=== PATIENT | male | born 1955 | race African-American/Black ===

== ENCOUNTER → 2016-09-20 | Outpatient (CLI) | payer BC ==
[2016-06-03 16:38] VITALS: BP 117/78
[~2016-09-20] MED LIST: ACET325T9 PO; AMLO1TAB76 PO; AMLO1TAB95 PO; CARI350T PO; HYDR-2672 PO; MELO-150 PO; NAPR220C4 PO; OXYC-244 PO; TRAM50TA PO; WARF5TAB7 PO
[2016-09-20 14:26] LABS: BASO # 0.1 x10^3/uL (0.0-0.2); BASO % 1 % (0-3); EOS % 3 % (0-3); HEMATOCRIT 48.8 % (39.0-53.0); HEMOGLOBIN 16.5 g/dL (13.0-17.5); LYMPH # 1.8 x10^3/uL (1.0-4.8); LYMPH % 25 % (24-48); MEAN CORPUSCULAR HEMOGLOBIN 30 pg (25-35); MEAN CORPUSCULAR HGB CONC 34 g/dL (31-37); MEAN CORPUSCULAR VOLUME 89 fL (79-100); MONO % 9 % (0-9); NEUT % 62 % (31-73); PLATELET COUNT 289 x10^3/uL (140-400); RED CELL DISTRIBUTION WIDTH 14.3 % (11.5-14.5)
[2016-09-20 14:35] LABS: INR 1.1 (0.8-1.1); PROTHROMBIN TIME PATIENT 13.2 SEC (11.7-14.0)
[2016-09-20 14:47] LABS: ALBUMIN 3.7 g/dL (3.4-5.0); CALCIUM 9.3 mg/dL (8.5-10.1); CREATININE 0.8 mg/dL (0.7-1.3); GFR 119.3; POTASSIUM 3.8 mmol/L (3.5-5.1)
[2016-09-20 15:07] LABS: BILIRUBIN,URINE NEGATIVE (NEG); GLUCOSE,URINE NEGATIVE (NEG); NITRITE,URINE NEGATIVE (NEG); PROTEIN,URINE NEGATIVE (NEG-TRACE); UROBILINOGEN,URINE 0.2 mg/dL (0.2 mg/dL)
[2016-09-20 15:18] LABS: BACTERIA,URINE FEW /HPF (0-FEW); RBC,URINE 0 /HPF (0-2); SQUAMOUS EPITHELIAL CELL,UR MANY /LPF; WBC,URINE OCC /HPF (0-4)
== END | disposition home or self-care (01) ==
LOC: SURGPAT 13:23
PROVIDERS: ATTEND Orthopaedic Surgery
DX: M17.0 Bilateral primary osteoarthritis of knee (principal)
CPT/HCPCS: 36415; 80048; 81001; 82040; 85027; 85610; 85651; 85730; 87641

== ENCOUNTER 2016-09-27 05:45 | Inpatient (IN) | payer BC ==
[~2016-09-27] VITALS: Ht 172.7 cm; Wt 127.9 kg
[2016-09-27] VITALS (9 sets, daily range): BP systolic 103–129; BP diastolic 61–88
[2016-09-27] MEDS ORDERED: TRANEXAMIC ACID 1,000 MG in IV NORMAL SALINE 50ML 50 ML INJ ONE ×2 (06:00→08:00)
[2016-09-27] MEDS ORDERED: CEFAZOLIN 2GM PREMIX 50 ML IV PRN (06:00)
[2016-09-27] MEDS ORDERED: ONDANSETRON PF 4 MG/2 ML VIAL. ONE (06:55)
[2016-09-27] MEDS ORDERED: DEXAMETHASONE SOD PHOS 20 MG/5 ML VIAL. ONE (06:55)
[2016-09-27] MEDS ORDERED: PROPOFOL 20 ML IV ONE (06:55)
[2016-09-27] MEDS ORDERED: FENTANYL PF 250 MCG/5 ML VIAL. ONE ×2 (06:55→08:26)
[2016-09-27] MEDS ORDERED: MIDAZOLAM HCL 2 MG/2 ML VIAL. ONE (06:55)
[2016-09-27] MEDS ORDERED: LIDOCAINE 2% 100 MG/5 ML DISP.SYRIN. ONE (06:55)
[2016-09-27] MEDS ORDERED: ONDANSETRON PF 4 MG/2 ML VIAL. IV PRN (07:00)
[2016-09-27] MEDS ORDERED: PROCHLORPERAZINE 10 MG/2 ML VIAL. IV PRN ×2 (07:00→08:00)
[2016-09-27] MEDS ORDERED: FENTANYL PF 100 MCG/2 ML VIAL. IV PRN ×2 (07:00→08:00)
[2016-09-27] MEDS ORDERED: IV RINGERS,LACTATED 1000ML 1,000 ML IV SCH (07:00)
[2016-09-27] MEDS ORDERED: LIDOCAINE 1% 1 ML SYRINGE. ID PRN (07:00)
[2016-09-27] MEDS ORDERED: HYDROMORPHONE 2 MG/ML VIAL. IV PRN (07:00)
[2016-09-27] MEDS ORDERED: HYDROCODONE/APAP 7.5/325MG TABLET. ONE (07:10)
[2016-09-27] MEDS ORDERED: MELOXICAM 7.5 MG TABLET PO ONE (07:10)
[2016-09-27] MEDS ORDERED: HYDROCODONE/APAP 7.5/325MG TABLET. PO ONE (07:30)
[2016-09-27] MEDS: MELOXICAM 7.5 MG TABLET PO SCH (07:30)
[2016-09-27 07:39] LABS: INR 1.1 (0.8-1.1); PROTHROMBIN TIME PATIENT 13.1 SEC (11.7-14.0)
[2016-09-27] MEDS ORDERED: ACETAMINOPHEN INTRAVENOUS 100 ML IV ONE (07:56)
[2016-09-27] MEDS ORDERED: DEXTROSE 50% 25 GM / 50ML DISP.SYRIN. IV PRN (08:00)
[2016-09-27] MEDS ORDERED: OXYCODONE/APAP 7.5/325 TABLET. PO PRN (08:00)
[2016-09-27] MEDS ORDERED: 0.9 % SODIUM CHLORIDE 10 ML DISP.SYRIN. IV PRN (08:00)
[2016-09-27] MEDS ORDERED: TRAMADOL 50 MG TABLET. PO PRN ×2 (08:00)
[2016-09-27] MEDS ORDERED: OXYCODONE/APAP 5/325 TABLET. PO PRN (08:00)
[2016-09-27] MEDS ORDERED: MORPHINE SULFATE 4 MG/ML DISP.SYRIN. IV PRN ×2 (08:00)
[2016-09-27] MEDS ORDERED: MORPHINE SULFATE 5 MG, KETOROLAC TROMETHAMINE 30 MG, ROPIVacaine 0.5% PF 60 ML, EPINEPH... INT ART ONE ×5 (08:00)
[2016-09-27] MEDS ORDERED: MORPHINE SULFATE 10 MG/ML VIAL. IV PRN (08:00)
[2016-09-27] MEDS ORDERED: HYDROCODONE/APAP 7.5/325MG TABLET. PO PRN (08:00)
[2016-09-27] MEDS ORDERED: DIPHENHYDRAMINE 50 MG/ML VIAL IV PRN (08:00)
[2016-09-27] MEDS ORDERED: CALCIUM CARBONATE 500 MG TAB.CHEW PO PRN (08:00)
[2016-09-27] MEDS ORDERED: MORPHINE SULFATE 2 MG/ML DISP.SYRIN. IV PRN (08:00)
[2016-09-27] MEDS ORDERED: ACETAMINOPHEN 325 MG TABLET. PO PRN (08:00)
[2016-09-27] MEDS: FENTANYL PF 100 MCG/2 ML VIAL. IV PRN ×4 (10:23→15:25)
--- NOTE | 2016-09-27 10:48 | RAD ---
Portable right knee, 2 views, 09/27/2016: History: Postop evaluation A total knee prosthesis has been placed in satisfactory position. Surgical skin clips and a drain overlie the operative site anteriorly. There is no evidence of a retained surgical instrument, needle or radiopaque sponge on these 2 views. IMPRESSION: No significant postoperative abnormality is detected.
[2016-09-27] MEDS: MORPHINE SULFATE 2 MG/ML DISP.SYRIN. IV PRN ×2 (11:01→11:13)
[2016-09-27] MEDS: IV DEXTROSE 5 %-0.45 % NACL 1,000 ML IV SCH ×2 (11:55→16:45)
[2016-09-27] MEDS: AMLODIPINE BESYLATE 5 MG TABLET PO SCH (12:00)
[2016-09-27] MEDS: LOSARTAN POTASSIUM 50 MG TABLET. PO SCH (12:00)
--- NOTE | 2016-09-27 12:02 | PDOC ---
BRIEF OPERATIVE NOTE Date: Sep 27, 2016 Pre-Op Diagnosis djd right knee Post-Op Diagnosis same Procedure Performed right total knee arthroplasty Surgeon Caitlyn Anesthesia Type: General Blood Loss 75cc Specimens Obtained cartilage surfaces to pathology Findings above Complications none MATEO WHEAT MD Sep 27, 2016 12:01
[2016-09-27] MEDS: SENNOSIDES/DOCUSATE 8.6/50MG TABLET. PO SCH (13:27)
[2016-09-27] MEDS: MULTIVITAMIN with MINERAL TABLET. PO SCH (13:27)
[2016-09-27] MEDS: CEFAZOLIN SODIUM 3 GM in IV NORMAL SALINE 100ML 100 ML IV SCH ×2 (13:28→19:39)
[2016-09-27] MEDS ORDERED: WARFARIN 7.5 MG TABLET. PO ONE (16:00)
[2016-09-27] MEDS: KETOROLAC TROMETHAMINE 30 MG, BUPIVACAINE MPF 0.25% 20 ML, EPINEPHRINE 0.5 MG in TOTAL ... INT ART SCH (16:44)
[2016-09-27] MEDS: HYDROCODONE/APAP 10/325 TABLET. PO PRN ×3 (16:44→22:55)
[2016-09-27] MEDS: FERROUS SULFATE 325 MG TABLET PO SCH (16:44)
[2016-09-27] MEDS ORDERED: CELECOXIB 200 MG CAPSULE PO SCH (21:00)
[2016-09-28] MEDS: IV DEXTROSE 5 %-0.45 % NACL 1,000 ML IV SCH ×2 (00:20→13:56)
[2016-09-28 02:42] VITALS: BP 103/67
[2016-09-28] MEDS: CEFAZOLIN SODIUM 3 GM in IV NORMAL SALINE 100ML 100 ML IV SCH (02:42)
[2016-09-28 05:04] LABS: HEMATOCRIT 42.1 % (39.0-53.0); HEMOGLOBIN 13.6 g/dL (13.0-17.5)
[2016-09-28 05:29] LABS: INR 1.3 (0.8-1.1); PROTHROMBIN TIME PATIENT 15.4 SEC (11.7-14.0)
[2016-09-28] MEDS: KETOROLAC TROMETHAMINE 30 MG, BUPIVACAINE MPF 0.25% 20 ML, EPINEPHRINE 0.5 MG in TOTAL ... INT ART SCH (05:41)
[2016-09-28] MEDS: HYDROCODONE/APAP 10/325 TABLET. PO PRN ×4 (05:51→23:11)
[2016-09-28] MEDS ORDERED: MAGNESIUM HYDROXIDE 2,400 MG/30 ML ORAL.SUSP. PO PRN (06:00)
[2016-09-28 06:04] VITALS: BP 104/70
[2016-09-28] MEDS: MULTIVITAMIN with MINERAL TABLET. PO SCH (08:45)
[2016-09-28] MEDS: FERROUS SULFATE 325 MG TABLET PO SCH ×2 (08:45→17:35)
[2016-09-28] MEDS: MELOXICAM 7.5 MG TABLET PO SCH (08:45)
[2016-09-28] MEDS: SENNOSIDES/DOCUSATE 8.6/50MG TABLET. PO SCH (08:46)
--- NOTE | 2016-09-28 08:52 | OP ---
DATE OF SURGERY: 09/27/2016 PREOPERATIVE DIAGNOSIS: Degenerative joint disease, right knee. POSTOPERATIVE DIAGNOSIS: Degenerative joint disease, right knee. PROCEDURE: Right total knee arthroplasty. SURGEON: Suman Brady MD. ANESTHESIA: General endotracheal. ESTIMATED BLOOD LOSS: 75 mL. COMPLICATIONS: None. OPERATIVE INDICATIONS: The patient is a 61-year-old male with severe right knee pain and degenerative changes, unresponsive to nonoperative treatment with severe erosion and tricompartmental degenerative findings on x-ray. I had gone over with him the risks, benefits, postoperative course of total knee arthroplasty as he has exhausted nonoperative treatment measures including injection, activity modification, anti-inflammatories, etc., and we had gone over the possible risks of infection, premature wear of loosening, continued pain, medical or other anesthetic complications including blood clots among others. All his questions were answered. Consent was obtained and he agrees to proceed with operative evaluation and treatment. DESCRIPTION OF PROCEDURE: The patient was identified, procedure verified, patient placed in the supine position on the operating table. After adequate amounts of general endotracheal anesthesia were administered, the right lower extremity was prepped and draped in standard sterile fashion and after timeout was performed, the patient and procedure identified and verified. The right lower extremity was exsanguinated by elevation, tourniquet inflated to 350 mmHg. A midline incision was made with a medial parapatellar approach. Fat pad was excised. Patella was everted. He was indeed noted to have very severe tricompartmental degenerative changes with marked erosion in the medial compartment. The femoral canal was drilled and located with the intramedullary guide used to establish a 5 degree cut with standard distal cut as he had very mild flexion contracture. Distal femur was then sized at a size 9 and cutting block was pinned in 3 degrees of external rotation after appropriate drill holes were placed and posterior referencing noted as there was minimal femoral deformity. Anterior, posterior chamfer cuts were then made. Posterior cruciate ligament was preserved. Menisci were excised and the external tibial guide was placed. I made a tibial cut designed to be just to the extent of the medial erosion and tibial component was sized at a size F. Trial components of a size F tibia were aligned to size 9 femur. Ligament balancing had previously been carried out in flexion, extension. A size 14 mm medial congruent spacer was placed as the 12 mm resulted in slight recurvatum. Patella was prepared. Lateral bone was removed to avoid any impingement and a 35 mm patellar trial then noted to have excellent alignment and tracking. The femoral lug holes were drilled. Tibia was drilled and broached and trial components were removed. Thorough irrigation carried out with normal saline solution and bleeding points in the capsule were controlled by electrocautery. Bone surfaces were thoroughly dried and [employer] components were cemented in with polymethyl methacralate cement consisting of a size F tibia, a size 9 standard femur and a size 14 medial congruent spacer was again placed with the knee held in extension. Excess cement was removed, 35 mm vitamin E patellar button was cemented in place. When cement was verified to be dry, any excess was removed. The trial spacer was removed. Thorough irrigation carried out with normal saline solution and a vitamin E medial congruent posterior cruciate retaining spacer was locked into place. Hemovac drain and catheter were placed. Catheter mixture was infused into the tissues. Closure was accomplished with #2 Ethibond suture in an interrupted fashion and reinforced by a running #1 Vicryl suture. Subcutaneous closure accomplished with a buried Vicryl suture, skin closure with calin. Sterile dressings were applied. Toes were noted to be warm and pink following deflation of the tourniquet, which was actually immediately after cementing. After about an hour and 10 minutes, the patient was extubated and transferred to postop holding in stable condition having tolerated the procedure well. SUMAN BRADY MD DR: MIRZA/madhavi JOB#: [id number] / [id number]
[2016-09-28] MEDS: AMLODIPINE BESYLATE 5 MG TABLET PO SCH (09:00)
[2016-09-28] MEDS: LOSARTAN POTASSIUM 50 MG TABLET. PO SCH (09:00)
--- NOTE | 2016-09-28 09:40 | PDOC ---
PROGRESS NOTES Subjective Subjective Problems overnight: Pain well controlled getting up and around reasonably well Objective Vital Signs Vital Signs Date Time Temp Pulse Resp B/P Pulse Ox O2 Delivery O2 Flow Rate FiO2 09/28/16 08:45 Room Air 09/28/16 07:39 2.0 09/28/16 06:52 20 09/28/16 06:04 98.5 82 104/70 91 98.5 Physical Exam Knee dressing clean dry and intact distal neurovascular status intact good early range of motion and excellent stability Labs Laboratory Tests Test 09/27/16 06:35 09/28/16 04:35 09/28/16 04:40 Prothrombin Time 13.1SEC (11.7-14.0) 15.4SEC (11.7-14.0) Prothromb Time International Ratio 1.1 (0.8-1.1) 1.3 (0.8-1.1) Activated Partial Thromboplast Time 24SEC (24-38) Hemoglobin 13.6g/dL (13.0-17.5) Hematocrit 42.1% (39.0-53.0) Mean Corpuscular Hemoglobin Concent 32g/dL (31-37) Laboratory Tests Test 09/28/16 04:35 09/28/16 04:40 Hemoglobin 13.6g/dL (13.0-17.5) Hematocrit 42.1% (39.0-53.0) Mean Corpuscular Hemoglobin Concent 32g/dL (31-37) Prothrombin Time 15.4SEC (11.7-14.0) Prothromb Time International Ratio 1.3 (0.8-1.1) Imaging Postop AP lateral x-rays right knee show excellent placement total knee arthroplasty Assessment Assessment POD# [1], S/P [right total knee arthroplasty] Problems: Plan Plan of Care Mobilize with physical therapy weightbearing as tolerated standard total knee protocol Coumadin anticoagulation MATEO WHEAT MD Sep 28, 2016 09:40
[2016-09-28 11:18] VITALS: BP 111/74
[2016-09-28] MEDS ORDERED: WARFARIN 5 MG TABLET. PO ONE (16:00)
[2016-09-28] MEDS ORDERED: BISACODYL 10 MG SUPP.RECT PR PRN (16:00)
[2016-09-28 17:25] VITALS: BP 100/59
[2016-09-28] MEDS: ZOLPIDEM 5 MG TABLET. PO PRN (23:11)
[2016-09-29] MEDS: HYDROCODONE/APAP 10/325 TABLET. PO PRN ×5 (05:21→21:04)
[2016-09-29 05:56] VITALS: BP 108/76
[2016-09-29 06:53] LABS: INR 1.5 (0.8-1.1); PROTHROMBIN TIME PATIENT 16.9 SEC (11.7-14.0)
[2016-09-29] MEDS: MULTIVITAMIN with MINERAL TABLET. PO SCH (08:15)
[2016-09-29] MEDS: SENNOSIDES/DOCUSATE 8.6/50MG TABLET. PO SCH (08:16)
[2016-09-29] MEDS: FERROUS SULFATE 325 MG TABLET PO SCH ×2 (08:16→17:16)
[2016-09-29] MEDS: MELOXICAM 7.5 MG TABLET PO SCH (08:16)
[2016-09-29] MEDS: AMLODIPINE BESYLATE 5 MG TABLET PO SCH (09:00)
[2016-09-29] MEDS: LOSARTAN POTASSIUM 50 MG TABLET. PO SCH (09:00)
[2016-09-29 09:46] LABS: HEMATOCRIT 41.3 % (39.0-53.0); HEMOGLOBIN 13.6 g/dL (13.0-17.5)
[2016-09-29 11:00] VITALS: BP 102/67
[2016-09-29] MEDS ORDERED: WARFARIN 4 MG TABLET. PO ONE (16:00)
--- NOTE | 2016-09-29 16:07 | PDOC ---
ORTHO PROGRESS NOTES Subjective Patient is doing well. Pain is controlled. No chest pain or shortness of breath. Advancing with therapy. Anticipates discharge to rehabilitation tomorrow Post-op Day: 2 (Right total knee arthroplasty) Vitals Vital Signs Date Time Temp Pulse Resp B/P Pulse Ox O2 Delivery O2 Flow Rate FiO2 09/29/16 12:52 Room Air 09/29/16 11:00 98.5 93 16 102/67 95 98.5 09/29/16 07:44 2.0 Labs Laboratory Tests Test 09/28/16 04:35 09/28/16 04:40 09/29/16 05:45 Hemoglobin 13.6g/dL (13.0-17.5) 13.6g/dL (13.0-17.5) Hematocrit 42.1% (39.0-53.0) 41.3% (39.0-53.0) Mean Corpuscular Hemoglobin Concent 32g/dL (31-37) 33g/dL (31-37) Prothrombin Time 15.4SEC (11.7-14.0) 16.9SEC (11.7-14.0) Prothromb Time International Ratio 1.3 (0.8-1.1) 1.5 (0.8-1.1) Laboratory Tests Test 09/29/16 05:45 Hemoglobin 13.6g/dL (13.0-17.5) Hematocrit 41.3% (39.0-53.0) Mean Corpuscular Hemoglobin Concent 33g/dL (31-37) Prothrombin Time 16.9SEC (11.7-14.0) Prothromb Time International Ratio 1.5 (0.8-1.1) Notes Patient is awake and alert sitting up in chair. Breathing unlabored, no acute distress. Range of motion 5-80 actively. Incision covered with dressing, intact. Neurovascular intact right lower extremity Problems: (1) Degenerative joint disease of right knee Assessment and Plan Continue PT OT, weightbearing as tolerated Pain controlled Anticoagulation per pharmacy Anticipate discharge to rehabilitation tomorrow Problem Qualifiers (1) Degenerative joint disease of right knee: Osteoarthritis type: primary Qualified Code: M17.11 - Unilateral primary osteoarthritis, right knee HESHAM POSADA APRN Sep 29, 2016 16:07
[2016-09-29 17:21] VITALS: BP 124/79
[2016-09-29] MEDS: ZOLPIDEM 5 MG TABLET. PO PRN (21:04)
[2016-09-30] MEDS: HYDROCODONE/APAP 10/325 TABLET. PO PRN ×3 (04:09→13:12)
[2016-09-30 06:02] VITALS: BP 133/82
[2016-09-30 07:11] LABS: HEMATOCRIT 41.3 % (39.0-53.0); HEMOGLOBIN 13.7 g/dL (13.0-17.5)
[2016-09-30 07:21] LABS: INR 1.4 (0.8-1.1); PROTHROMBIN TIME PATIENT 16.5 SEC (11.7-14.0)
--- NOTE | 2016-09-30 08:36 | PATHOLOGY ---
PATHOLOGY REPORT * * * * * * * * FINAL DIAGNOSIS: Segments of bone and soft tissue, right total knee arthroplasty: - Advanced degenerative arthritis. (JPM:; d/t: 09/29/16) REPORT ELECTRONICALLY SIGNED BY: Carlos Marshall M.D. DATE/TIME: 09/30/2016 08:36 * * * * * * * * GROSS PATHOLOGY: Received in formalin labeled "Demarco Roque III, right knee bone and tissue," are multiple segments of bone, including tibial plateau, measuring 11.2 x 8.6 x 2.9 cm in aggregate dimensions admixed with soft tissue; meniscus is not present. The specimen shows focal eburnation of the articular surfaces. Community Affairs Manager sections of bone and soft tissue are submitted in cassette A1, following decalcification. (CAA; 09/28/2016) INITIAL CPT CODE(S): A; 60528, 58607 Professional services performed [place] [facility] [place] [address] Technical services performed by [facility] at [address] [place] [address]. SPECIMEN(S) RECEIVED: A.Right knee bone and tissue CLINICAL HISTORY: Right knee osteoarthritis PATIENT: DEMARCO ROQUE III /AGE: 803/29/1955 (Age: 61) PATIENT #: [id number] ALT CASE #: SPECIMEN COLLECTION DATE: 09/27/2016 SPECIMEN RECEIVED DATE: 09/27/2016 [facility] - [address] [place] [address] - PHONE: [phone] * * * END OF REPORT * * *
[2016-09-30] MEDS: FERROUS SULFATE 325 MG TABLET PO SCH (09:13)
[2016-09-30] MEDS: MULTIVITAMIN with MINERAL TABLET. PO SCH (09:13)
[2016-09-30] MEDS: SENNOSIDES/DOCUSATE 8.6/50MG TABLET. PO SCH (09:13)
[2016-09-30] MEDS: MELOXICAM 7.5 MG TABLET PO SCH (09:14)
[2016-09-30] MEDS: LOSARTAN POTASSIUM 50 MG TABLET. PO SCH (09:15)
[2016-09-30] MEDS: AMLODIPINE BESYLATE 5 MG TABLET PO SCH (09:15)
--- NOTE | 2016-09-30 13:45 | DISCH ---
DISCHARGE INSTRUCTIONS Condition on Discharge Condition on Discharge: Stable Activity After Discharge Activity Instructions for Disc: Other, see below Other activity instructions: weight bearing as tolerated, walker for support Bathing Instructions: Shower-keep dressing dry Diet after Discharge Diet after Discharge: Regular Wound Incision Care Wound/Incision Care: Ice to area for comfort, Keep wound elevated, Do not change dressing Community/Resources/Services Services at Discharge: Home Health Care Services, PT EVALUATE & TREAT Contacting the DR. after DC Call your doctor for: Concerns you may have Follow-Up Follow up with: Caitlyn 2 weeks postop Treatment/Equipment after DC Adaptive Equipment Issued: Front wheeled walker MATEO WHEAT MD Sep 30, 2016 13:45
[2016-09-30] MEDS ORDERED: WARFARIN 6 MG TABLET. PO ONE (14:00)
[2016-09-30] MEDS ORDERED: WARF1TAB PO (15:20)
[2016-09-30] MEDS ORDERED: HYDR-963 PO (15:21)
[2016-09-30 16:45] VITALS: BP 124/86
--- NOTE | 2016-09-30 23:51 | DS ---
DATE OF DISCHARGE: 09/30/2016 PRINCIPAL DIAGNOSIS: Degenerative joint disease of right knee. PROCEDURE: Right total knee arthroplasty. ADDITIONAL DIAGNOSES: BMI related. DISCHARGE MEDICATIONS: Include Montgomery 10/325 one p.o. q. 3h. p.r.n. pain, Coumadin as directed by anticoagulation clinic, resume preoperative medications. ACTIVITIES: Weightbearing as tolerated, standard total knee precautions, may shower with dressing intact. Keep incision dry. DISCHARGE INSTRUCTIONS: Report any redness, drainage, fever, chills, uncontrolled pain or other problems. Follow up with Dr. Brady in 2 weeks. BRIEF DESCRIPTION OF HOSPITAL COURSE: The patient underwent an uncomplicated right total knee arthroplasty, postoperative day #1, did well with physical therapy. His hemoglobin, hematocrit and vital signs were stable throughout. Pain was well controlled on pain medication. He is doing well in terms of his activities of daily living and was discharged from the hospital in stable condition with home health care. Follow up. MATEO BRADY MD DR: MIRZA/madhavi JOB#: [id number] / [id number] SHAHRIAR oJhnston MD
== END 2016-09-30 17:15 | disposition home health service (06) | DRG 470 ==
LOC: OPSVCIP 05:45 → 4 SOUTHEST 11:35
PROVIDERS: ADMIT Orthopaedic Surgery; ATTEND Orthopaedic Surgery
PROC: 0SRC0J9 Replacement of Right Knee Joint with Synthetic Substitute, Cemented, Open Approach (ICD-10-PCS; principal; 2016-09-27 07:30)
DX: M17.11 Unilateral primary osteoarthritis, right knee (principal)
CPT/HCPCS: 36415; 73560; 85014; 85018; 85610; 85730; 86850; 86900; 86901; 88305; 88311; J0131; J0171; J0690; J1100; J1885; J2250; J2270; J2405; J2704; J2795; J3010; J3490; J7030; J7120; 97116; 97150; 97530; C1769

== ENCOUNTER 2016-10-31 12:00 | Inpatient (IN) | payer BC ==
[2016-10-31] VITALS (7 sets, daily range): BP systolic 109–146; BP diastolic 62–97
[~2016-10-31] VITALS: Ht 172.7 cm; Wt 127.0 kg
[~2016-10-31 12:00] MED LIST changes: +HYDR-963 PO; +WARF1TAB PO
[2016-10-31] MEDS ORDERED: MORPHINE SULFATE 4 MG/ML DISP.SYRIN. IV/SQ PRN (12:15)
--- NOTE | 2016-10-31 12:31 | PHYS DOC ---
Past Medical History Past Medical History: Hypertension Additional Past Medical Histor: bulging disks, spinal stenosis, chronic back pain Past Surgical History: Knee Replacement Additional Past Surgical Histo: back surgery Alcohol Use: None Drug Use: None Adult General Chief Complaint Chief Complaint: TRAUMA ALERT HPI HPI Patient is a 61 year old male who presents with right knee pain and bleeding since fall from standing height. He was doing a forward lunge in PT and fell to his right side. Does not recall direct knee trauma, but had pain and bleeding with noted large incision opening. He denies numbness, tingling, weakness, other injury. No loss of consciousness. Review of Systems Review of Systems Constitutional: Denies fever or chills [] Eyes: Denies change in visual acuity, redness, or eye pain [] HENT: Denies nasal congestion or sore throat [] Respiratory: Denies cough or shortness of breath [] Cardiovascular: No additional information not addressed in HPI [] GI: Denies abdominal pain, nausea, vomiting, bloody stools or diarrhea [] : Denies dysuria or hematuria [] Musculoskeletal: Denies back pain [] Integument: Denies rash or skin lesions [] Neurologic: Denies headache, focal weakness or sensory changes [] Endocrine: Denies polyuria or polydipsia [] Current Medications Current Medications Current Medications Medications (Trade) Dose Ordered Sig/Kvng Start Time Stop Time Status Last Admin Dose Admin Cefazolin Sodium/ Sodium Chloride (Ancef/Iv Sodium Chloride 0.9% 50ml) 50 ml @ 100 mls/hr Q8HRS 10/31/16 14:00 UNV Morphine Sulfate 4 mg 4 mg PRN Q15MIN PRN 10/31/16 12:15 11/01/16 12:14 Allergies Allergies Allergies Coded Allergies Type Severity Reaction Last Updated Verified JF Inhibitors Allergy Intermediate 09/27/16 Yes Physical Exam Physical Exam Constitutional: Well developed, well nourished, no acute distress, non-toxic appearance. [] HENT: Normocephalic, atraumatic, bilateral external ears normal, oropharynx moist, nose normal. [] Eyes: PERRLA, EOMI. [] Neck: Normal range of motion, supple. [] Cardiovascular:Heart rate regular rhythm [] Lungs & Thorax: Bilateral breath sounds clear to auscultation [] Abdomen: Bowel sounds normal, soft, no tenderness. [] Skin: Warm, dry, no erythema, no rash. [] Back: Normal ROM. [] Extremities: RLE with incision wide open with some blood pooling in the wound, no active bleeding, able to see arthosis; hip/knee ROM not tested, intact ROM of ankle and toes; sensation intact to light touch; good dp pulse. Neurologic: Alert and oriented X 3, normal motor function, normal sensory function, no focal deficits noted. [] Psychologic: Affect normal, judgement normal, mood normal. [] Course & Med Decision Making Course & Med Decision Making Pertinent Labs and Imaging studies reviewed. (See chart for details) Assessed wound at bedside with Dr. Brady, orthopedics, who agrees with imaging and Ancef and treatment in the operating room. Discussed case with Dr. Fink, trauma surgery, for trauma alert; who agrees with plan. Dragon Disclaimer Dragon Disclaimer This electronic medical record was generated, in whole or in part, using a voice recognition dictation system. Departure Departure Impression: Primary Impression: Wound dehiscence Disposition: ADMITTED INPATIENT Condition: STABLE Referrals: SHAHRIAR BECKMAN MD (PCP) Grayson HARVEY MD Oct 31, 2016 12:31
[2016-10-31 12:34] LABS: BASO # 0.1 x10^3/uL (0.0-0.2); BASO % 1 % (0-3); EOS % 2 % (0-3); HEMATOCRIT 45.9 % (39.0-53.0); HEMOGLOBIN 15.5 g/dL (13.0-17.5); LYMPH # 2.6 x10^3/uL (1.0-4.8); LYMPH % 35 % (24-48); MEAN CORPUSCULAR HEMOGLOBIN 30 pg (25-35); MEAN CORPUSCULAR HGB CONC 34 g/dL (31-37); MEAN CORPUSCULAR VOLUME 88 fL (79-100); MONO % 10 % (0-9); NEUT % 52 % (31-73); PLATELET COUNT 293 x10^3/uL (140-400); RED BLOOD COUNT 5.23 x10^6/uL (4.30-5.70); RED CELL DISTRIBUTION WIDTH 14.8 % (11.5-14.5); WHITE BLOOD COUNT 7.6 x10^3/uL (4.0-11.0)
[2016-10-31 12:38] LABS: PROTHROMBIN TIME PATIENT 12.5 SEC (11.7-14.0)
[2016-10-31 12:39] LABS: CALCIUM 9.4 mg/dL (8.5-10.1); GFR 92.2; POTASSIUM 3.9 mmol/L (3.5-5.1)
[2016-10-31] MEDS ORDERED: IV RINGERS,LACTATED 1000ML 1,000 ML IV SCH (12:40)
[2016-10-31] MEDS ORDERED: PROCHLORPERAZINE 10 MG/2 ML VIAL. IV PRN ×2 (12:45→16:30)
[2016-10-31] MEDS ORDERED: LIDOCAINE 1% 1 ML SYRINGE. ID PRN (12:45)
[2016-10-31] MEDS ORDERED: MORPHINE SULFATE 2 MG/ML DISP.SYRIN. IV PRN ×2 (12:45→16:30)
[2016-10-31] MEDS ORDERED: ONDANSETRON PF 4 MG/2 ML VIAL. IV PRN (12:45)
[2016-10-31] MEDS ORDERED: FENTANYL PF 100 MCG/2 ML VIAL. IV PRN ×3 (12:45→16:30)
[2016-10-31] MEDS ORDERED: CEFAZOLIN 1GM IVPB FOR OMNI 50 ML IV ONE (12:45)
--- NOTE | 2016-10-31 12:55 | RAD ---
Right knee, 3 views, 10/31/2016: History: Fall, knee pain, wound to his since Comparison is made to a study from 09/27/2016. The femoral and tibial components of the knee prosthesis appear to be in satisfactory position. The patella is now displaced laterally. No fracture is identified. There is extensive soft tissue deformity anteriorly with gas collections projected over the soft tissues. There is diffuse subcutaneous edema about the knee. IMPRESSION: Lateral patellar dislocation
[2016-10-31] MEDS ORDERED: PROPOFOL 20 ML IV ONE ×2 (12:58→13:44)
[2016-10-31] MEDS ORDERED: DEXAMETHASONE SOD PHOS 20 MG/5 ML VIAL. ONE (12:58)
[2016-10-31] MEDS ORDERED: LIDOCAINE 2% 100 MG/5 ML DISP.SYRIN. ONE (12:58)
[2016-10-31] MEDS ORDERED: ONDANSETRON PF 4 MG/2 ML VIAL. ONE (12:58)
[2016-10-31] MEDS ORDERED: FENTANYL PF 100 MCG/2 ML VIAL. ONE ×2 (12:59→13:56)
[2016-10-31] MEDS: IV RINGERS,LACTATED 1000ML 1,000 ML IV SCH ×2 (13:20→21:35)
[2016-10-31] MEDS ORDERED: SUCCINYLCHOLINE 200 MG/10 ML VIAL. ONE (13:21)
[2016-10-31] MEDS ORDERED: PHENYLEPHRINE in 0.9% NACL PF 1 MG/10 ML DISP.SYRIN. IV ONE (13:47)
[2016-10-31] MEDS ORDERED: ROCURONIUM 50 MG/5 ML VIAL. ONE (13:55)
[2016-10-31] MEDS ORDERED: CEFAZOLIN SODIUM 1 GM in IV NORMAL SALINE 50ML 50 ML IV SCH (14:00)
[2016-10-31] MEDS ORDERED: EPHEDRINE PF IN SALINE 50 MG/5 ML DISP.SYRIN. IV ONE (14:03)
[2016-10-31] MEDS ORDERED: CEFAZOLIN 2GM PREMIX 50 ML IV ONE (14:05)
[2016-10-31] MEDS ORDERED: GLYCOPYRROLATE 1 MG/5 ML VIAL. ONE (14:36)
[2016-10-31] MEDS ORDERED: NEOSTIGMINE METHYLSULFATE 5 MG/5 ML SYRINGE. ONE (14:36)
[2016-10-31] MEDS ORDERED: MORPHINE SULFATE 10 MG/ML VIAL. ONE (15:11)
[2016-10-31] MEDS ORDERED: DESFLURANE 61 TO 120 MINUTES IH ONE (15:20)
[2016-10-31] MEDS: FENTANYL PF 100 MCG/2 ML VIAL. IV PRN ×4 (15:44→16:12)
[2016-10-31] MEDS ORDERED: IV DEXTROSE 5 %-0.45 % NACL 1,000 ML IV SCH (16:21)
[2016-10-31] MEDS ORDERED: 0.9 % SODIUM CHLORIDE 10 ML DISP.SYRIN. IV PRN (16:30)
[2016-10-31] MEDS ORDERED: MORPHINE SULFATE 10 MG/ML VIAL. IV PRN (16:30)
[2016-10-31] MEDS ORDERED: DIPHENHYDRAMINE 50 MG/ML VIAL IV PRN (16:30)
[2016-10-31] MEDS ORDERED: TRAMADOL 50 MG TABLET. PO PRN ×3 (16:30)
[2016-10-31] MEDS ORDERED: HYDROCODONE/APAP 10/325 TABLET. PO PRN (16:30)
[2016-10-31] MEDS ORDERED: DEXTROSE 50% 25 GM / 50ML DISP.SYRIN. IV PRN (16:30)
[2016-10-31] MEDS ORDERED: MORPHINE SULFATE 4 MG/ML DISP.SYRIN. IV PRN (16:30)
[2016-10-31] MEDS ORDERED: OXYCODONE/APAP 5/325 TABLET. PO PRN (16:30)
[2016-10-31] MEDS ORDERED: CALCIUM CARBONATE 500 MG TAB.CHEW PO PRN (16:30)
[2016-10-31] MEDS ORDERED: ACETAMINOPHEN 325 MG TABLET. PO PRN (16:30)
[2016-10-31] MEDS: HYDROMORPHONE 2 MG/ML VIAL. IV PRN ×2 (16:31→16:43)
--- NOTE | 2016-10-31 16:40 | PDOC ---
BRIEF OPERATIVE NOTE Date: Oct 31, 2016 Pre-Op Diagnosis traumatic dehiscence right knee wound Post-Op Diagnosis same Procedure Performed I/D repair and closure right knee Surgeon Caitlyn Anesthesia Type: General Blood Loss 100cc Findings above Complications none MATEO WHEAT MD Oct 31, 2016 16:40
--- NOTE | 2016-10-31 17:57 | ACF ---
Admission Forms Criteria WOUND COMPLICATIONS Clinical Indications for Inpatient Care (Place 'X' for any and all applicable criteria): Ongoing inpatient care may be indicated for wound complications with ANY ONE of the following (1) (15): [ ]I. Infection with ANY ONE of the following(32)(33): [ ]a) Temperature greater than 38.5 C (101.3 F) [ ]b) Evidence of tissue necrosis [ ]c) Erythema diameter expanding around wound despite treatment [ ]d) Mental status changes [ ]e) Dehydration [ ]f) Bacteremia [ ]g) Hemodynamic instability [ ]h) Suspected necrotizing fasciitis [ ]i) Rapidly spreading lesions [ ]j) High-risk location (eg, perineum, sternum, orbit) [ ]k) High-risk coexisting clinical condition as indicated by ANY ONE of the following: [ ]i) Poorly controlled diabetes [ ]ii) Cirrhosis [ ]iii) Renal failure [ ]iv) Neutropenia [ ] v) Asplenia [ ]vi) Immunosuppression (eg, AIDS, chronic corticosteroid use) [ ]viii) Other high-risk medical comorbidities [X] II. Dehiscence requiring frequent monitoring or immediate treatment [ ] III. Hematoma with ANY ONE of the following: [ ]a) Hemodynamic instability or acute anemia due to rapid development of hematoma [ ]b) Neck hematoma causing airway compression [ ]c) Retroperitoneal hematoma [ ]d) Uncontrolled coagulopathy [ ]IV. Seroma with evidence of secondary infection and requirement for IV antibiotics [D](31) [ ]V. Pain that cannot be managed at lower level of care Extended stay beyond goal length of stay for primary condition may be needed until ALL of the following are present(1)(33)(34): [ ]a) Afebrile or fever resolving [ ]b) Hemodynamic stability [ ]c) Pain resolving [ ]d) Wound closed, continuity adequately restored, or wound manageable at lower level of care [ ]e) No drain needed or drain care manageable at lower level of care [ ]f) Wound hematoma or seroma resolving [ ]g) Antibiotics not needed or regimen manageable at lower level of care(38) [ ]h) Dressing care manageable at lower level of care [ ]i) Coagulopathy absent, resolved, or treatable at lower level of care [ ]j) Medical comorbidities resolved or treatable at lower level of care The original [facility] content created by [employer] has been revised. The portions of the content which have been revised are identified through the use of italic text or in bold, and [facility] has neither reviewed nor approved the modified material. All other unmodified content is copyright [facility]. Please see references footnoted in the original [facility] edition 2016 Admission Criteria Met?: Yes ALANA GOLDBERG Oct 31, 2016 17:57
[2016-10-31] MEDS ORDERED: WARFARIN 7.5 MG TABLET. PO ONE (18:00)
[2016-10-31] MEDS: FERROUS SULFATE 325 MG TABLET PO SCH (18:03)
[2016-10-31] MEDS: CEFAZOLIN SODIUM 3 GM in IV NORMAL SALINE 100ML 100 ML IV SCH (18:44)
--- NOTE | 2016-10-31 18:56 | HP ---
ADMIT DATE: 10/31/2016 CHIEF COMPLAINT: Right knee wound. HISTORY OF PRESENT ILLNESS: The patient is about a month out from total knee arthroplasty, doing very well when I last saw him about 2 weeks ago, said his knee was coming along great. He was actually performing a lot more activities than preoperatively and doing well with physical therapy. Apparently he was at outpatient physical therapy today doing the three forward lunges and fell to his right side his knee and gave out on him and had an incision open up. Denies any head injury or loss of consciousness. PAST MEDICAL HISTORY: Significant for hypertension, chronic back pain, spinal stenosis. PAST SURGICAL HISTORY: Significant for a knee arthroplasty as noted above and previous back surgery. ALLERGIES: INCLUDE JF INHIBITORS. MEDICATIONS: List is reviewed including Coumadin. REVIEW OF SYSTEMS: Denies any chest pain, shortness of breath, fever, chills, radiating pain, numbness, tingling, really just significant for the knee pain currently. Denies any headaches, visual changes, dizziness, change in bowel or bladder habits and again was doing well with the knee prior to this incident. FAMILY HISTORY: Noncontributory. SOCIAL HISTORY: He was back at home again doing outpatient therapy. Denies any alcohol, smoking or drug use. PHYSICAL EXAMINATION: VITAL SIGNS: Temperature 97.9, pulse 95, respirations 18, blood pressure 134/75, 93% saturation on room air, which was later 100% on room air. HEENT: Atraumatic, normocephalic. HEART: Regular rate and rhythm. LUNGS: Clear to auscultation bilaterally. ABDOMEN: Benign, obese. EXTREMITIES: Examination of the right knee reveals obvious opening of the central portion of his incision as well as his retinaculum. The implant is actually visible. No gross contamination is noted. X-rays show intact femoral and tibial components with the patella displaced laterally as expected. IMPRESSION: 1. Traumatic wound dehiscence, right knee. 2. Status post total knee arthroplasty. TREATMENT PLAN: I actually met him down in the Emergency Department after hearing about this incident and physical therapy. I emphasized to him that the major risk of this issue is really with infection and we want to get him into surgery really as soon as possible, which actually is consistent with his n.p.o. status, which was last consumption of food about 6 hours ago. I told him that otherwise the knee components seem to be in good position and we would take him in and thoroughly wash out and repair the wound get him back into physical therapy as soon as possible based on the condition of tissues, etc. All his questions were answered. Consent was obtained and we planned procedures only to the Emergency Department today. MATEO WHEAT MD DR: MIRZA/madhavi JOB#: [id number] / [id number]
[2016-10-31] MEDS: CELECOXIB 200 MG CAPSULE PO SCH (20:36)
[2016-10-31] MEDS: HYDROCODONE/APAP 7.5/325MG TABLET. PO PRN (20:37)
[2016-10-31] MEDS: CEFAZOLIN SODIUM 1 GM in IV NORMAL SALINE 50ML 50 ML IV SCH (22:00)
--- NOTE | 2016-10-31 22:54 | OP ---
DATE OF SURGERY: 10/31/2016 PREOPERATIVE DIAGNOSIS: Traumatic right wound dehiscence status post right total knee arthroplasty. PROCEDURE: Irrigation and debridement with repair of the retinaculum and closure. SURGEON: Suman Brady M.D. ANESTHESIA: General. ESTIMATED BLOOD LOSS: 100 mL COMPLICATIONS: None. OPERATIVE INDICATIONS: The patient is a 61-year-old male who underwent total knee arthroplasty about a month ago. He was doing extremely well when I saw him 2 weeks ago, said his function was excellent, really had very little knee pain and actually said it felt much better than the other knee did in fact with his increased activities, his opposite knee was hurting somewhat more as a result. He was apparently on outpatient physical therapy today, doing lunge type exercise for strength and states that he was on his third one and just could not hold up any more, went off to the side, landed on his right side, twisted his knee and apparently his knee incision popped open. He is not sure exactly how it happened, did not lose any consciousness, but presented to the Emergency Department and was immediately evaluated. I told him my biggest concern was really for infection and we would want to get him in urgently to explore his knee and medicate any of those risks. All his questions were answered. Consent was obtained and he agrees to proceed with operative evaluation and treatment. OPERATIVE TECHNIQUE: The patient was identified, procedure verified, patient placed in the supine position on the operating table. After adequate amounts of general endotracheal anesthesia were administered, the right lower extremity was prepped and draped in standard sterile fashion with a thigh tourniquet applied, but not inflated. After timeout was performed, the patient and procedure identified and verified. The area was first debrided of any loose suture. His Vicryl suture in the subcutaneous area and Vicryl and Ethibond in the retinaculum had completely broken lose with the trauma. The tibial and femoral components were in excellent position and when I brought the patella over from its originally laterally subluxed position, was found to track well in the groove. The debridement was carried out of any hematoma present. There was no devitalized tissue or evidence of infection whatsoever. Once debridement of the tendon edges and subcutaneous tissue was carried out, thorough irrigation carried out with pulse lavage. No debridement of bone was necessary. A total of 4 liters of normal saline solution and pulse lavage were used ____ the wound. After the thorough irrigation carried out and bleeding points controlled by electrocautery, the retinaculum was repaired with #2 Ethibond suture, first in an interrupted fashion and then oversewn twice in a running fashion for reinforcement. Additional thorough irrigation carried out with normal saline solution and bleeding points were controlled. Subcutaneous closure was accomplished with a running quill suture and skin closure with nylon suture in a mattress tension relieving and simple fashion all used. Excellent reapproximation was noted. Patellofemoral tracking and stability of the remainder of the knee joint was verified under all degrees of flexion and movement. Sterile dressings were applied followed by an Wail wrap. The patient was extubated and transferred to postop holding in stable condition having tolerated the procedure well. SUMAN BRADY MD DR: MIRZA/madhavi JOB#: [id number] / [id number]
[2016-11-01] VITALS (7 sets, daily range): BP systolic 88–124; BP diastolic 61–78
[2016-11-01] MEDS: CEFAZOLIN SODIUM 3 GM in IV NORMAL SALINE 100ML 100 ML IV SCH ×2 (01:59→06:40)
[2016-11-01] MEDS: CEFAZOLIN SODIUM 1 GM in IV NORMAL SALINE 50ML 50 ML IV SCH ×3 (02:04→22:00)
[2016-11-01 05:05] LABS: INR 1.1 (0.8-1.1); PROTHROMBIN TIME PATIENT 13.4 SEC (11.7-14.0)
[2016-11-01] MEDS ORDERED: MAGNESIUM HYDROXIDE 2,400 MG/30 ML ORAL.SUSP. PO PRN (06:00)
--- NOTE | 2016-11-01 09:23 | PDOC2 ---
CONSULT Date of Consult Date of Consult DATE: 11/01/16 TIME: 09:16 Reason for Consult Reason for Consult: Fall History of Present Illness Reason for Visit: The patient is a 61 year old male who was brought to the ER after a fall. He had right knee surgery by Dr Brady on Sep 27 and was in physical therapy. He states his knee gave out and he fell from standing height on his left side. He denies loss of consciousness or subsequent neck or back pain. The first thing he noticed was disruption of his R leg incision with a significant amount of blood. He denied noticing any pain or other complaints at any other region of the body. Past Medical History Past Medical History morbid obesity, hypertension, spinal stenosis Past Surgical History Past Surgical History back surgery, R knee, surgery, hip surgery Social History No ALCOHOL: rare Lives: with Family Current Problem List Problem List Problems Medical Problems: (1) BMI 40.0-44.9, adult Status: Acute (2) Wound dehiscence Status: Acute Current Medications Current Medications Current Medications Morphine Sulfate 4 mg 4 mg PRN Q15MIN PRN IV/SQ PAIN GREATER THAN 3/10 Last administered on 10/31/16 12:49; Start 10/31/16 at 12:15; Stop 11/01/16 at 12:14 Cefazolin Sodium 1 gm/Sodium Chloride 50 ml @ 100 mls/hr Q8HRS IV ; Start 10/31 at 14:00; Stop 10/31/16 at 14:00; Status DC Cefazolin Sodium (Ancef 1gm Ivpb For Omni) 50 ml @ 100 mls/hr 1X ONCE IV Last administered on 10/31/16 12:50; Start 10/31/16 at 12:45; Stop 10/31/16 at 13:48; Status DC Ondansetron HCl (Zofran) 4 mg PRN Q6HRS PRN IV Nausea Last administered on 10/31 12:48; Start 10/31/16 at 12:45; Stop 11/01/16 at 12:44 Fentanyl Citrate (Fentanyl 2ml Vial) 25 mcg PRN Q5MIN PRN IV MILD PAIN; Start 10/31/16 at 12:45; Stop 11/01/16 at 12:44 Fentanyl Citrate (Fentanyl 2ml Vial) 50 mcg PRN Q5MIN PRN IV MODERATE PAIN Last administered on 10/31/16 16:12; Start 10/31/16 at 12:45; Stop 11/01/16 at 12:44 Morphine Sulfate 1 mg 1 mg PRN Q10MIN PRN IV SEVERE PAIN; Start 10/31/16 at 12: 45; Stop 11/01/16 at 12:44 Lactated Ringer's (Iv Lactated Ringers) 1,000 ml @ 0 mls/hr Q0M IV ; Start at 12:40; Stop 11/01/16 at 00:39; Status DC Lidocaine HCl 2 ml 1X PRN PRN ID IV START; Start 10/31/16 at 12:45; Stop at 12:44 Hydromorphone HCl (Dilaudid) 0.5 mg PRN Q10MIN PRN IV SEV PAIN,Second choice Last administered on 10/31/16 16:43; Start 10/31/16 at 12:45; Stop 11/01/16 at 12:44 Prochlorperazine Edisylate (Compazine) 5 mg PACU PRN PRN IV NAUSEA; Start 10/31 at 12:45; Stop 11/01/16 at 12:44 Dexamethasone Sodium Phosphate (Decadron) 20 mg STK-MED ONCE .ROUTE ; Start at 12:58; Stop 10/31/16 at 12:59; Status DC Ondansetron HCl 4 mg 4 mg STK-MED ONCE .ROUTE ; Start 10/31/16 at 12:58; Stop at 12:59; Status DC Propofol (Diprivan) 20 ml @ As Directed STK-MED ONCE IV ; Start 10/31/16 at 12: 58; Stop 10/31/16 at 12:59; Status DC Lidocaine HCl 100 mg STK-MED ONCE .ROUTE ; Start 10/31/16 at 12:58; Stop at 12:59; Status DC Fentanyl Citrate (Fentanyl 2ml Vial) 100 mcg STK-MED ONCE .ROUTE ; Start at 12:59; Stop 10/31/16 at 13:00; Status DC Succinylcholine Chloride 200 mg 200 mg STK-MED ONCE .ROUTE ; Start 10/31/16 at 13:21; Stop 10/31/16 at 13:22; Status DC Lactated Ringer's 1,000 ml @ 125 mls/hr Q8H IV Last administered on 10/31/16t 13:20; Start 10/31/16 at 13:35; Stop 11/01/16 at 01:34; Status DC Propofol (Diprivan) 20 ml @ As Directed STK-MED ONCE IV ; Start 10/31/16 at 13: 44; Stop 10/31/16 at 13:45; Status DC Phenylephrine HCl 1 mg 1 mg STK-MED ONCE IV ; Start 10/31/16 at 13:47; Stop at 13:48; Status DC Cefazolin Sodium/ Sodium Chloride (Ancef/Iv Sodium Chloride 0.9% 50ml) 50 ml @ 100 mls/hr Q8HRS IV ; Start 10/31/16 at 22:00 Rocuronium Cohocton (Zemuron) 50 mg STK-MED ONCE .ROUTE ; Start 10/31/16 at 13:55 ; Stop 10/31/16 at 13:56; Status DC Fentanyl Citrate (Fentanyl 2ml Vial) 100 mcg STK-MED ONCE .ROUTE ; Start at 13:56; Stop 10/31/16 at 13:57; Status DC Ephedrine Sulfate 50 mg 50 mg STK-MED ONCE IV ; Start 10/31/16 at 14:03; Stop at 14:04; Status DC Cefazolin Sodium/ Dextrose (Ancef 2gm Premix) 50 ml @ As Directed STK-MED ONCE IV ; Start 10/31/16 at 14:05; Stop 10/31/16 at 14:06; Status DC Glycopyrrolate (Robinul) 1 mg STK-MED ONCE .ROUTE ; Start 10/31/16 at 14:36; Stop 10/31/16 at 14:37; Status DC Neostigmine Methylsulfate 5 mg STK-MED ONCE .ROUTE ; Start 10/31/16 at 14:36; Stop 10/31/16 at 14:37; Status DC Morphine Sulfate 10 mg STK-MED ONCE .ROUTE ; Start 10/31/16 at 15:11; Stop 10/31 at 15:12; Status DC Desflurane (Suprane) 60 ml STK-MED ONCE IH ; Start 10/31/16 at 15:20; Stop 10/31 at 15:21; Status DC Acetaminophen/ Hydrocodone Bitart (Lortab 7.5/325) 1 tab PRN Q3HRS PRN PO PAIN Last administered on 10/31/16 20:37; Start 10/31/16 at 16:30 Acetaminophen/ Hydrocodone Bitart (Lortab 10/325) 1 tab PRN Q3HRS PRN PO PAIN; Start 10/31/16 at 16:30 Tramadol HCl (Ultram) 50 mg PRN QID PRN PO PAIN; Start 10/31/16 at 16:30 Oxycodone/ Acetaminophen (Percocet 5/325) 1 tab PRN Q3HRS PRN PO PAIN; Start at 16:30 Oxycodone/ Acetaminophen (Percocet 7.5/ 325) 1 tab PRN Q3HRS PRN PO PAIN; Start 10/31/16 at 16:30 Tramadol HCl (Ultram) 100 mg PRN Q3HRS PRN PO PAIN; Start 10/31/16 at 16:30 Morphine Sulfate 2 mg PRN Q1HR PRN IV PAIN; Start 10/31/16 at 16:30 Fentanyl Citrate (Fentanyl 2ml Vial) 25 mcg PRN Q1HR PRN IV PAIN; Start at 16:30 Diphenhydramine HCl (Benadryl) 25 mg PRN Q6HRS PRN IV ITCHING; Start 10/31/16 at 16:30 Warfarin Sodium (Coumadin Per Pharmacy) 1 each PRN DAILY PRN MC SEE COMMENTS Last administered on 10/31/16 17:23; Start 10/31/16 at 16:30 Multivitamins (Thera M Plus) 1 tab DAILY PO ; Start 11/01/16 at 09:00 Senna/Docusate Sodium (Senna Plus) 1 tab DAILY PO ; Start 11/01/16 at 09:00 Ferrous Sulfate (Feosol) 325 mg BIDWMEALS PO Last administered on 10/31/16 18: 03; Start 10/31/16 at 17:00 Celecoxib 200 mg 200 mg BID PO Last administered on 10/31/16 20:36; Start at 21:00 Dextrose/Sodium Chloride (Iv D5% - 1/2 NS) 1,000 ml @ 100 mls/hr Q10H IV ; Start 10/31/16 at 16:21; Stop 10/31/16 at 18:20; Status DC Magnesium Hydroxide (Milk Of Magnesia) 2,400 mg 1X PRN PRN PO CONSTIPATION; Start 11/01/16 at 06:00; Stop 11/02/16 at 05:59 Bisacodyl (Dulcolax Supp) 10 mg 1X PRN PRN [place] CONSTIPATION; Start 11/01/16 at 16:00; Stop 11/02/16 at 15:59 Acetaminophen (Tylenol) 650 mg PRN Q4HRS PRN PO MILD PAIN / TEMP; Start at 16:30 Zolpidem Tartrate (Ambien) 5 mg PRN QHS PRN PO INSOMNIA, MAY REPEAT IN 1HR; Start 10/31/16 at 16:30 Calcium Carbonate/ Glycine (Tums) 500 mg PRN QID PRN PO INDIGESTION; Start at 16:30 Morphine Sulfate 4 mg PRN Q1HR PRN IV PAIN; Start 10/31/16 at 16:30 Morphine Sulfate 6 mg PRN Q1HR PRN IV PAIN; Start 10/31/16 at 16:30 Morphine Sulfate 8 mg PRN Q1HR PRN IV PAIN; Start 10/31/16 at 16:30 Sodium Chloride (Normal Saline Flush) 10 ml QSHIFT PRN IV AFTER MEDS AND BLOOD DRAWS; Start 10/31/16 at 16:30 Fentanyl Citrate (Fentanyl 2ml Vial) 50 mcg PRN Q1HR PRN IV PAIN; Start at 16:30 Prochlorperazine Edisylate (Compazine) 10 mg PRN Q4HRS PRN IV NAUSEA/VOMITING; Start 10/31/16 at 16:30 Dextrose 12.5 gm 12.5 gm PRN Q15MIN PRN IV SEE COMMENTS; Start 10/31/16 at 16: 30 Cefazolin Sodium/ Sodium Chloride (Ancef/Iv Sodium Chloride 0.9% 100ml) 100 ml @ 200 mls/hr Q6H IV Last administered on 11/01/16t 06:40; Start 10/31/16 at 19 :00; Stop 11/01/16 at 07:29; Status DC Acetaminophen/ Hydrocodone Bitart (Lortab 10/325) 1 tab PRN Q3HRS PRN PO PAIN; Start 10/31/16 at 16:30 Tramadol HCl (Ultram) 100 mg PRN Q6HRS PRN PO PAIN; Start 10/31/16 at 16:30 Amlodipine Besylate (Norvasc) 5 mg DAILY PO ; Start 11/01/16 at 09:00 Losartan Potassium (Cozaar) 100 mg DAILY PO ; Start 11/01/16 at 09:00 Warfarin Sodium (Coumadin) 7.5 mg 1X WARF ONCE PO Last administered on t 18:03; Start 10/31/16 at 18:00; Stop 10/31/16 at 18:01; Status DC Active Scripts Active Reported Tracy 10-325 Tablet (Acetaminophen/Hydrocodone Bitart) 1 Each Tablet 1 Tab PO PRN Q3HRS PRN LAST DOSE GIVEN: DATE:09-30-16 TIME:12:30 p.m. NEXT DOSE DUE: DATE:09-30-16 TIME:4:30 p.m. if needed for pain Coumadin (Warfarin Sodium) 1 Mg Tablet 1 Tab PO DAILY LAST DOSE GIVEN: DATE:09-30-16 TIME: NEXT DOSE DUE: DATE:09-21-16 TIME:5:00 p.m. Theresa 5-40 Mg Tablet (Amlodipine Bes/Olmesartan Med) 1 Each Tablet 1 Each PO DAILY Not given while in hosp. resume at home as directed Meloxicam 15 Mg Tablet 1 Tab PO DAILY LAST DOSE GIVEN: DATE:06/03/16 TIME:0900 NEXT DOSE DUE: DATE:06/04/16 TIME:0900 Tramadol Hcl 50 Mg Tablet 100 Mg PO Q6H PRN Not given in hosp. may resume at home do not take with lortab Allergies Allergies: Coded Allergies: JF Inhibitors (Verified Allergy, Intermediate, 10/31/16) ROS General: No: Appetite, Chills, Fatigue, Malaise, Night Sweats, Other PSYCHOLOGICAL ROS: No: Anxiety, Behavioral Disorder, Concentration difficultie , Decreased libido, Depression, Disorientation, Hallucinations, Hostility, Irritablity, Memory difficulties, Mood Swings, Obsessive thoughts, Other, Physical abuse, Sexual abuse, Sleep disturbances, Suicidal ideation Eyes: No Blurry vision, No Decreased vision, No Double vision, No Dry eyes, No Excessive tearing, No Eye Pain, No Itchy Eyes, No Loss of vision, No Other, No Photophobia, No Scotomata, No Uses contacts, No Uses glasses HEENT: No: Epistaxis, Heacaches, Hearing change, Nasal congestion, Nasal discharge, Oral lesions, Other, Sinus pain, Sneezing, Snoring, Sore Throat, Tinnitus, Vertigo, Visual Changes, Vocal changes ALLERGY AND IMMUNOLOGY: No: Hives, Insect Bite Sensitivity, Itchy/Watery Eyes, Nasal Congestion, Other, Post Nasal Drip, Seasonal Allergies Hematological and Lymphatic: No: Bleeding Problems, Blood Clots, Blood Transfusions, Brusing, Night Sweats, Other, Pallor, Swollen Lymph Nodes ENDOCRINE: No: Breast Changes, Galactorrhea, Hair Pattern Changes, Hot Flashes , Malaise/lethargy, Mood Swings, Other, Palpitations, Polydipsia/polyuria, Skin Changes, Temperature Intolerance, Unexpected Weight Changes Respiratory: No: Cough, Hemoptysis, Orthopnea, Other, Pleuritic Pain, SOB with excertion, Shortness of breath, Sputum Changes, Stridor, Tachypnea, Wheezing Cardiovascular: No Chest Pain, No Edema, No Lt Headedness, No Orthopnea, No Other, No Palpitations, No Paroxysmal Noc. Dyspnea Gastrointestinal: No Abdominal Pain, No Constipation, No Diarrhea, No Hematochezia, No Melena, No Nausea, No Other, No Vomiting Genitourinary: No , No , No , No , No , No , No , No Discharge, No Dysuria, No Flank Pain, No Frequency, No Hematuria, No Incontinence, No Other, No Pain, No Retention, No Urgency Musculoskeletal: Yes Other (bleeding from right knee after fall) Neurological: No Behavorial Changes, No Bowel/Bladder ControlChng, No Confusion , No Dizziness, No Gait Disturbance, No Headaches, No Impaired Coord/balance, No Memory Loss, No Numbness/Tingling, No Other, No Seizures, No Speech Problems , No Tremors, No Visual Changes, No Weakness Skin: No Acne, No Dry Skin, No Eczema, No Hair Changes, No Lumps, No Mole Changes, No Mottling, No Nail Changes, No Other, No Pruritus, No Rash, No Skin Lesion Changes Physical Exam General: Alert, Oriented X3, Cooperative, No acute distress HEENT: Atraumatic, PERRLA, Mucous membr. moist/pink Lungs: Clear to auscultation, Normal air movement Heart: Regular rate, Normal S1, Normal S2, No murmurs Abdomen: Normal bowel sounds, Soft, No tenderness Extremities: Other (R leg with knee postop dressing, left leg without lesion or deformity, sensory function grossly intact in leg, normal strength and movement of left leg and right toes) Skin: No rashes, No breakdown Neuro: Normal speech Psych/Mental Status: Mental status NL MUSCULOSKELETAL: No deformity, Other (R leg in dressing) Vitals VITALS Vital Signs Date Time Temp Pulse Resp B/P Pulse Ox O2 Delivery O2 Flow Rate FiO2 11/01/16 07:00 97.7 87 18 124/71 93 Room Air 97.7 10/31/16 15:46 8.0 Labs Labs Laboratory Tests Test 10/31/16 12:15 11/01/16 04:25 White Blood Count 7.6x10^3/uL (4.0-11.0) Red Blood Count 5.23x10^6/uL (4.30-5.70) Hemoglobin 15.5g/dL (13.0-17.5) Hematocrit 45.9% (39.0-53.0) Mean Corpuscular Volume 88fL (79-100) Mean Corpuscular Hemoglobin 30pg (25-35) Mean Corpuscular Hemoglobin Concent 34g/dL (31-37) Red Cell Distribution Width 14.8% (11.5-14.5) Platelet Count 293x10^3/uL (140-400) Neutrophils (%) (Auto) 52% (31-73) Lymphocytes (%) (Auto) 35% (24-48) Monocytes (%) (Auto) 10% (0-9) Eosinophils (%) (Auto) 2% (0-3) Basophils (%) (Auto) 1% (0-3) Neutrophils # (Auto) 4.0x10^3uL (1.8-7.7) Lymphocytes # (Auto) 2.6x10^3/uL (1.0-4.8) Monocytes # (Auto) 0.8x10^3/uL (0.0-1.1) Eosinophils # (Auto) 0.2x10^3/uL (0.0-0.7) Basophils # (Auto) 0.1x10^3/uL (0.0-0.2) Prothrombin Time 12.5SEC (11.7-14.0) 13.4SEC (11.7-14.0) Prothromb Time International Ratio 1.0 (0.8-1.1) 1.1 (0.8-1.1) Sodium Level 141mmol/L (136-145) Potassium Level 3.9mmol/L (3.5-5.1) Chloride Level 103mmol/L (98-107) Carbon Dioxide Level 29mmol/L (21-32) Anion Gap 9 (6-14) Blood Urea Nitrogen 11mg/dL (8-26) Creatinine 1.0mg/dL (0.7-1.3) Estimated GFR (Cockcroft-Gault) 92.2 Glucose Level 114mg/dL (70-99) Calcium Level 9.4mg/dL (8.5-10.1) Laboratory Tests Test 10/31/16 12:15 11/01/16 04:25 White Blood Count 7.6x10^3/uL (4.0-11.0) Red Blood Count 5.23x10^6/uL (4.30-5.70) Hemoglobin 15.5g/dL (13.0-17.5) Hematocrit 45.9% (39.0-53.0) Mean Corpuscular Volume 88fL (79-100) Mean Corpuscular Hemoglobin 30pg (25-35) Mean Corpuscular Hemoglobin Concent 34g/dL (31-37) Red Cell Distribution Width 14.8% (11.5-14.5) Platelet Count 293x10^3/uL (140-400) Neutrophils (%) (Auto) 52% (31-73) Lymphocytes (%) (Auto) 35% (24-48) Monocytes (%) (Auto) 10% (0-9) Eosinophils (%) (Auto) 2% (0-3) Basophils (%) (Auto) 1% (0-3) Neutrophils # (Auto) 4.0x10^3uL (1.8-7.7) Lymphocytes # (Auto) 2.6x10^3/uL (1.0-4.8) Monocytes # (Auto) 0.8x10^3/uL (0.0-1.1) Eosinophils # (Auto) 0.2x10^3/uL (0.0-0.7) Basophils # (Auto) 0.1x10^3/uL (0.0-0.2) Prothrombin Time 12.5SEC (11.7-14.0) 13.4SEC (11.7-14.0) Prothromb Time International Ratio 1.0 (0.8-1.1) 1.1 (0.8-1.1) Sodium Level 141mmol/L (136-145) Potassium Level 3.9mmol/L (3.5-5.1) Chloride Level 103mmol/L (98-107) Carbon Dioxide Level 29mmol/L (21-32) Anion Gap 9 (6-14) Blood Urea Nitrogen 11mg/dL (8-26) Creatinine 1.0mg/dL (0.7-1.3) Estimated GFR (Cockcroft-Gault) 92.2 Glucose Level 114mg/dL (70-99) Calcium Level 9.4mg/dL (8.5-10.1) Assessment/Plan Assessment/Plan 61 year old male S/P fall during physical therapy, recent R knee surgery (). Injury appears isolated to right knee healing wound, addressed by Dr Brady with operative intervention yesterday. No other trauma related findings noted on history or with physical examination. We will sign off, please call if we can be of assistance in the future. TERELL BRENNAN MD Nov 01, 2016 09:23
[2016-11-01] MEDS: HYDROCODONE/APAP 7.5/325MG TABLET. PO PRN (10:28)
[2016-11-01] MEDS: FERROUS SULFATE 325 MG TABLET PO SCH ×2 (10:29→18:05)
[2016-11-01] MEDS: MULTIVITAMIN with MINERAL TABLET. PO SCH (10:30)
[2016-11-01] MEDS: AMLODIPINE BESYLATE 5 MG TABLET PO SCH (10:30)
[2016-11-01] MEDS: CELECOXIB 200 MG CAPSULE PO SCH ×2 (10:30→20:42)
[2016-11-01] MEDS: SENNOSIDES/DOCUSATE 8.6/50MG TABLET. PO SCH (10:31)
[2016-11-01] MEDS: LOSARTAN POTASSIUM 50 MG TABLET. PO SCH (10:31)
[2016-11-01] MEDS: FENTANYL PF 100 MCG/2 ML VIAL. IV PRN (10:42)
[2016-11-01 13:37] LABS: HEMATOCRIT 40.9 % (39.0-53.0)
[2016-11-01] MEDS: HYDROCODONE/APAP 10/325 TABLET. PO PRN ×2 (14:31→18:23)
[2016-11-01] MEDS ORDERED: BISACODYL 10 MG SUPP.RECT. PR PRN (16:00)
[2016-11-01] MEDS ORDERED: WARFARIN 5 MG TABLET. PO ONE (16:00)
--- NOTE | 2016-11-01 17:47 | PDOC ---
PROGRESS NOTES Subjective Subjective Problems overnight:delayed pt due to pain this am, more comfortable now, to get meds before afternoon pt Objective Vital Signs Vital Signs Date Time Temp Pulse Resp B/P Pulse Ox O2 Delivery O2 Flow Rate FiO2 11/01/16 15:00 99.2 82 18 108/69 97 Room Air 99.2 10/31/16 15:46 8.0 Physical Exam dressing c/d/i, neuro intact Labs Laboratory Tests Test 10/31/16 12:15 11/01/16 04:25 White Blood Count 7.6x10^3/uL (4.0-11.0) Red Blood Count 5.23x10^6/uL (4.30-5.70) Hemoglobin 15.5g/dL (13.0-17.5) 13.0g/dL (13.0-17.5) Hematocrit 45.9% (39.0-53.0) 40.9% (39.0-53.0) Mean Corpuscular Volume 88fL (79-100) Mean Corpuscular Hemoglobin 30pg (25-35) Mean Corpuscular Hemoglobin Concent 34g/dL (31-37) 32g/dL (31-37) Red Cell Distribution Width 14.8% (11.5-14.5) Platelet Count 293x10^3/uL (140-400) Neutrophils (%) (Auto) 52% (31-73) Lymphocytes (%) (Auto) 35% (24-48) Monocytes (%) (Auto) 10% (0-9) Eosinophils (%) (Auto) 2% (0-3) Basophils (%) (Auto) 1% (0-3) Neutrophils # (Auto) 4.0x10^3uL (1.8-7.7) Lymphocytes # (Auto) 2.6x10^3/uL (1.0-4.8) Monocytes # (Auto) 0.8x10^3/uL (0.0-1.1) Eosinophils # (Auto) 0.2x10^3/uL (0.0-0.7) Basophils # (Auto) 0.1x10^3/uL (0.0-0.2) Prothrombin Time 12.5SEC (11.7-14.0) 13.4SEC (11.7-14.0) Prothromb Time International Ratio 1.0 (0.8-1.1) 1.1 (0.8-1.1) Sodium Level 141mmol/L (136-145) Potassium Level 3.9mmol/L (3.5-5.1) Chloride Level 103mmol/L (98-107) Carbon Dioxide Level 29mmol/L (21-32) Anion Gap 9 (6-14) Blood Urea Nitrogen 11mg/dL (8-26) Creatinine 1.0mg/dL (0.7-1.3) Estimated GFR (Cockcroft-Gault) 92.2 Glucose Level 114mg/dL (70-99) Calcium Level 9.4mg/dL (8.5-10.1) Laboratory Tests Test 11/01/16 04:25 Hemoglobin 13.0g/dL (13.0-17.5) Hematocrit 40.9% (39.0-53.0) Mean Corpuscular Hemoglobin Concent 32g/dL (31-37) Prothrombin Time 13.4SEC (11.7-14.0) Prothromb Time International Ratio 1.1 (0.8-1.1) Assessment Assessment POD# [1], S/P [i/d closure right knee] Problems: Plan Plan of Care mobilize with pt, ongoing plans depend on progress WBAT and will avoid knee flexion past about 90 MATEO WHEAT MD Nov 01, 2016 17:47
[2016-11-01] MEDS: OXYCODONE/APAP 7.5/325 TABLET. PO PRN (20:42)
[2016-11-01] MEDS: ZOLPIDEM 5 MG TABLET. PO PRN (20:42)
[2016-11-01] MEDS: MORPHINE SULFATE 4 MG/ML DISP.SYRIN. IV PRN (20:43)
[2016-11-02 03:00] VITALS: BP 109/71
[2016-11-02] MEDS: CEFAZOLIN SODIUM 1 GM in IV NORMAL SALINE 50ML 50 ML IV SCH ×2 (05:57→14:00)
[2016-11-02] MEDS: OXYCODONE/APAP 7.5/325 TABLET. PO PRN (05:58)
[2016-11-02 07:00] VITALS: BP 111/80
[2016-11-02 07:46] LABS: INR 1.1 (0.8-1.1); PROTHROMBIN TIME PATIENT 13.8 SEC (11.7-14.0)
[2016-11-02] MEDS: AMLODIPINE BESYLATE 5 MG TABLET PO SCH (07:50)
[2016-11-02] MEDS: HYDROCODONE/APAP 10/325 TABLET. PO PRN ×3 (07:50→21:28)
[2016-11-02] MEDS: SENNOSIDES/DOCUSATE 8.6/50MG TABLET. PO SCH (07:50)
[2016-11-02] MEDS: FERROUS SULFATE 325 MG TABLET PO SCH ×2 (07:50→16:39)
[2016-11-02] MEDS: MULTIVITAMIN with MINERAL TABLET. PO SCH (07:51)
[2016-11-02] MEDS: LOSARTAN POTASSIUM 50 MG TABLET. PO SCH (07:51)
[2016-11-02] MEDS: CELECOXIB 200 MG CAPSULE PO SCH ×2 (07:51→21:28)
[2016-11-02] MEDS: MORPHINE SULFATE 4 MG/ML DISP.SYRIN. IV PRN (09:54)
[2016-11-02 11:00] VITALS: BP 112/72
[2016-11-02 15:00] VITALS: BP 105/60
[2016-11-02] MEDS ORDERED: WARFARIN 5 MG TABLET. PO ONE (16:00)
--- NOTE | 2016-11-02 17:35 | PDOC ---
PROGRESS NOTES Subjective Subjective Problems overnight: Physical therapy actually didn't come by yesterday afternoon after his pain situation was better controlled. He seems to be doing better today sitting at bedside with knee flexed 90 minimal pain Objective Vital Signs Vital Signs Date Time Temp Pulse Resp B/P Pulse Ox O2 Delivery O2 Flow Rate FiO2 11/02/16 16:40 16 Room Air 11/02/16 15:00 97.9 81 105/60 96 97.9 10/31/16 15:46 8.0 Physical Exam Dressing clean dry intact extensor mechanism intact distal neurovascular status intact Labs Laboratory Tests Test 11/01/16 04:25 11/02/16 06:50 Hemoglobin 13.0g/dL (13.0-17.5) Hematocrit 40.9% (39.0-53.0) Mean Corpuscular Hemoglobin Concent 32g/dL (31-37) Prothrombin Time 13.4SEC (11.7-14.0) 13.8SEC (11.7-14.0) Prothromb Time International Ratio 1.1 (0.8-1.1) 1.1 (0.8-1.1) Laboratory Tests Test 11/02/16 06:50 Prothrombin Time 13.8SEC (11.7-14.0) Prothromb Time International Ratio 1.1 (0.8-1.1) Assessment Assessment POD# [], S/P [closure traumatic wound dehiscence] Problems: Plan Plan of Care Mobilize with physical therapy today Discharge planning based on progress Plan no Coumadin due to the risk of bleeding with his dehiscence higher than the risk of blood clot as he aren't he completed his previous total knee course of Coumadin He will need updating of short-term disability and potentially long-term disability paperwork from our office MATEO WHEAT MD Nov 02, 2016 17:35
[2016-11-02 19:58] VITALS: BP 100/65
[2016-11-02] MEDS: ZOLPIDEM 5 MG TABLET. PO PRN (21:28)
[2016-11-02 23:04] VITALS: BP 98/71
[2016-11-03 03:01] VITALS: BP 121/76
[2016-11-03] MEDS: HYDROCODONE/APAP 10/325 TABLET. PO PRN ×4 (04:46→16:50)
[2016-11-03] MEDS ORDERED: FENTANYL PF 100 MCG/2 ML VIAL. IV PRN ×2 (05:21→05:22)
[2016-11-03] MEDS ORDERED: ACETAMINOPHEN 325 MG TABLET. PO PRN (05:21)
[2016-11-03 07:00] VITALS: BP 118/70
[2016-11-03] MEDS ORDERED: AMLODIPINE BESYLATE 5 MG TABLET. ONE (07:29)
[2016-11-03] MEDS ORDERED: CELECOXIB 200 MG CAPSULE. ONE (07:29)
[2016-11-03] MEDS: FERROUS SULFATE 325 MG TABLET PO SCH ×2 (08:02→16:46)
[2016-11-03] MEDS: SENNOSIDES/DOCUSATE 8.6/50MG TABLET. PO SCH (08:02)
[2016-11-03] MEDS: MULTIVITAMIN with MINERAL TABLET. PO SCH (08:02)
[2016-11-03] MEDS: CELECOXIB 200 MG CAPSULE PO SCH (08:02)
[2016-11-03] MEDS: LOSARTAN POTASSIUM 50 MG TABLET. PO SCH (08:04)
[2016-11-03] MEDS: AMLODIPINE BESYLATE 5 MG TABLET PO SCH (08:05)
[2016-11-03 08:23] LABS: INR 1.1 (0.8-1.1); PROTHROMBIN TIME PATIENT 13.3 SEC (11.7-14.0)
--- NOTE | 2016-11-03 10:27 | PDOC ---
ORTHO PROGRESS NOTES Subjective Patient is doing well, ready to go home. pain controlled with oral pain meds Vitals Vital Signs Date Time Temp Pulse Resp B/P Pulse Ox O2 Delivery O2 Flow Rate FiO2 11/03/16 09:08 16 Room Air 11/03/16 08:05 70 118/71 11/03/16 07:00 98.1 97 98.1 Labs Laboratory Tests Test 11/02/16 06:50 11/03/16 08:00 Prothrombin Time 13.8SEC (11.7-14.0) 13.3SEC (11.7-14.0) Prothromb Time International Ratio 1.1 (0.8-1.1) 1.1 (0.8-1.1) Laboratory Tests Test 11/03/16 08:00 Prothrombin Time 13.3SEC (11.7-14.0) Prothromb Time International Ratio 1.1 (0.8-1.1) Notes Incision well approximated, scant drainage on dressing. moderate edema. NV intact Problems: (1) Wound dehiscence Assessment and Plan Home today with outpatient PT. Follow up with Dr. east as scheduled on November 09. HESHAM POSADA APRN Nov 03, 2016 10:27
[2016-11-03 12:00] VITALS: BP 111/74
[2016-11-03 15:00] VITALS: BP 107/62
--- NOTE | 2016-11-04 07:59 | DS ---
DATE OF DISCHARGE: 11/03/2016 PRINCIPAL DIAGNOSIS: Traumatic dehiscence, right knee wound. PROCEDURE: Irrigation and debridement with reinforced closure of right knee wound. DISPOSITION MEDICATIONS: Include [place] 10/325 mg one p.o. q. 2h. p.r.n. pain. Resume home medications. No Coumadin, which was previously stopped from his total knee arthroplasty. Weightbearing as tolerated with physical therapy to advance slowly on motion and strength. Avoid deep flexion past 90 degrees. DISCHARGE INSTRUCTIONS: Report any redness, drainage, fever, chills, uncontrolled pain, and other concerns or problems. Keep the dressing clean and dry. Shower only if dressing is intact. Follow up with Dr. Brady in about 2 weeks postoperatively. BRIEF DESCRIPTION OF HOSPITAL COURSE: The patient was admitted emergently from physical therapy as he was doing some lunge-type exercises, lost his balance somewhat, and sustained a traumatic ____ right knee wound about a month post total knee arthroplasty. He was brought into the Emergency Department and went emergently to the operating room, but there was ____ exposed knee arthroplasty components for irrigation, debridement, and closure. I had gone over with him the biggest concern of infection and he received antibiotics in the Emergency Department. No gross contamination was noted and excellent closure was obtained. He had slow progress initially through physical therapy due to poor pain control on postoperative day #1. On postoperative day #2, he did much better with physical therapy, and on postoperative day #3, he was judged to be safe enough really to go home with home health, eventually transitioning to outpatient physical therapy when able. MATEO BRADY MD DR: MIRZA/madhavi JOB#: [id number] / [id number] ecc On-call, Physician
== END 2016-11-03 17:30 | disposition home health service (06) | DRG 908 ==
LOC: ER 12:00 → 4 NORTH 12:15 → ER 13:00
PROVIDERS: ADMIT Orthopaedic Surgery; ATTEND Orthopaedic Surgery
PROC: 0JDN0ZZ Extraction of Right Lower Leg Subcutaneous Tissue and Fascia, Open Approach (ICD-10-PCS; principal; 2016-10-31 13:00)
DX: T81.33XA Disruption of traumatic injury wound repair, initial encounter (principal); Z68.41 Body mass index [BMI] 40.0-44.9, adult; I10 Essential (primary) hypertension; Z96.651 Presence of right artificial knee joint; E66.01 Morbid (severe) obesity due to excess calories; G89.29 Other chronic pain; M54.9 Dorsalgia, unspecified; W18.30XA Fall on same level, unspecified, initial encounter
CPT/HCPCS: 36415; 73562; 80048; 85014; 85018; 85027; 85610; 96374; 96375; J0330; J0690; J1100; J1170; J2270; J2370; J2405; J2704; J2710; J3010; J3490; J7030; J7120; 97116; 97150; 97530; 99285-25

== ENCOUNTER → 2017-05-12 | Outpatient (CLI) | payer BC ==
[~2017-05-12] MED LIST changes: -AMLO1TAB76 PO; +AMLO1TAB91 PO; +GABA300C8 PO; -HYDR-2672 PO; +HYDR-2766 PO; +IOHEXOL 180 MG/ML 10 ML VIAL. ONE; -MELO-150 PO; +MELO15TA23 PO; -OXYC-244 PO; +OXYC-327 PO; -WARF1TAB PO; +WARF1TAB74 PO; +methylPREDNISolone ACETATE 40 MG/ML VIAL. ONE; +methylPREDNISolone ACETATE 80 MG/ML VIAL. ONE
--- NOTE | 2017-05-12 13:04 | PAIN ---
DATE OF SERVICE: 05/12/2017 DIAGNOSES: Lumbar radiculopathy with lumbar degenerative disk disease and post-lumbar laminectomy syndrome. HISTORY OF PRESENT ILLNESS: The patient is a 62-year-old male who returns for followup status post previous epidural injections about one year ago on 05/30/2016. The patient reports he did well with this, but had hip surgery on his left hip within several days after the injection and does not remember how long the injection lasting. He members feeling better prior to the surgery, but after that he was having rehab and is having difficulty with postop pain in the left leg. The patient reports now the pain is returning in the low back, more on the right leg, radiating in the posterior gluteus, posterior thigh, posterior lower legs, some in the left side, but sporadically, more constant and radiating on the right side. The patient reports tingling and radiating tight, as a 6 on a scale of 10 at its is worse, 4 on average, is a 2 on a scale of 10 currently. Better with sitting or lying down, does not awaken her from sleep often, but does some nights, but he sleeps about 4-5 hours at a time. He can easily reposition. Usually more painful lying on his right side, it awakens him from sleep. The patient reports no new motor or sensory deficits, no new bowel or bladder incontinence or other complaints. PAST MEDICAL HISTORY: Significant for hypertension, osteoarthritis. PREVIOUS SURGERY: Includes lumbar laminectomy in 2013 and left total hip replacement, right total knee replacement. MEDICATIONS: Updated and well documented on the patient's chart. ALLERGIES: THE PATIENT IS ALLERGIC TO JF INHIBITORS, WHICH MAKES HIM COUGH. SOCIAL HISTORY: The patient does not smoke or drink, he lives on his own with his spouse. 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 FAMILY HISTORY: Significant for high blood pressure and heart disease. REVIEW OF SYSTEMS: Positive for those items mentioned in history of present illness, it is well documented. All systems reviewed and otherwise negative except for those mentioned in history of present illness and well documented on the patient's chart. PHYSICAL EXAMINATION: VITAL SIGNS: The patient's blood pressure is 119/85, pulse 116, respirations are 20, temperature is 98.2 degrees Fahrenheit. Weight is 285 pounds stated. GENERAL: The patient is awake, alert, oriented, appropriate, very pleasant demeanor. Initially sitting in a wheelchair on presentation, which he already uses that to get around as much as possible. HEENT: Head shows normocephalic, atraumatic. Extraocular movements are intact and symmetrical. Oral cavity, mucous membranes are moist and pink. Dentition is intact. NECK: Shows anterior throat supple without palpable lymphadenopathy noted. Swallow reflex is symmetrical. CHEST: Shows normal on inspection. Breath sounds are clear to auscultation bilaterally. HEART: Shows S1, S2 clear. ABDOMEN: Obese, soft, nontender, nondistended. No palpable organomegaly. No rebound or guarding demonstrated. BACK: Shows spine grossly in midline. Well healed surgical scars noted in the lumbar distribution, some flattening of lumbar lordotic curvature. The patient's spine shows no tenderness with palpation over the lumbar paraspinous distribution, sacrum or sacroiliac regions. Lower extremities showed deep tendon reflexes 1+ in the patellar and tendo calcaneus tendons are equal. Motor exam is strong with dorsiflexion and extension, rated at 5/5, with quadriceps and hamstring flexion, approximately 3-4 on a scale of 5 bilaterally, but is symmetrical. Options were discussed with the patient and the patient's old chart was reviewed, his current medication regimen updated. Current review of systems updated today as well. We will proceed with a caudal approach epidural steroid injection today with fluoroscopic guidance. Risks were again discussed including, but not limited to bleeding, infection, possibility of epidural hematoma and subsequent neurologic compromise, dural puncture, headaches, spinal cord and/or nerve damage, side effects of steroid medication and poor results regarding pain control. The patient understands and wishes to proceed. The patient will return to clinic in approximately 2 weeks for followup, was counseled on return appointment, activity level and side effects to be aware of. DIAGNOSES: Lumbar radiculopathy with lumbar degenerative disk disease and post-lumbar laminectomy syndrome. PROCEDURE: Caudal approach epidural steroid injection. Using C-arm fluoroscopic guidance, under sterile prep and drape using local anesthetic. MEDICATION INJECTED: A total of 120 mg of Depo-Medrol plus 2 mL Isovue for contrast and 10 mL of preservative-free normal saline. CONDITION AT DISCHARGE: Stable. The patient tolerated procedure well and had no complications. The patient was counseled as to try and increase his activity level, will try and do more stretching and strengthening exercises of the back and lower extremities. Also, we will follow up with his orthopedic surgeon regarding his right hip as it is a [id number] presentation on x-ray. The patient understands and will follow up as scheduled. DAVID CABEZAS MD DR: ANASTASIYA/amdhavi JOB#: [id number] / [id number]
== END | disposition home or self-care (01) ==
LOC: PNCL 10:16
PROVIDERS: ATTEND Anesthesiology
DX: M51.16 Intervertebral disc disorders with radiculopathy, lumbar region (principal); M96.1 Postlaminectomy syndrome, not elsewhere classified; I10 Essential (primary) hypertension; M19.90 Unspecified osteoarthritis, unspecified site; Z96.651 Presence of right artificial knee joint; Z96.642 Presence of left artificial hip joint
CPT/HCPCS: 62323; J1030; J1040

== ENCOUNTER → 2017-05-26 | Outpatient (CLI) | payer BC ==
[~2017-05-26] MED LIST changes: -IOHEXOL 180 MG/ML 10 ML VIAL. ONE; -methylPREDNISolone ACETATE 40 MG/ML VIAL. ONE; -methylPREDNISolone ACETATE 80 MG/ML VIAL. ONE
--- NOTE | 2017-05-26 12:35 | PAIN ---
DATE OF SERVICE: 05/26/2017 PROGRESS NOTE FOR PAIN CLINIC DIAGNOSES: 1. Lumbar radiculopathy with lumbar degenerative disk disease and post-lumbar laminectomy syndrome. 2. Bilateral hip joint pain with osteoarthritis. HISTORY OF PRESENT ILLNESS: The patient is a 62-year-old male who returns for followup status post caudal epidural steroid injection x 1 on 05/12/2017. The patient reports he did very well with about 65% improvement with the injection. The patient reports it is now still about 50% improvement overall and he is feeling much better. He is not using his wheelchair anymore. He has a walker with him today, which is significant improvement in activity and ease and comfort. The patient reports he is trying to work with his posture as well as being more active. He has been walking almost every day, but only about 50 yards or so. The patient was trying to increase his activity as stated. The patient reports his pain is a 6 on a scale of 10 and it is worse now, average about 3 and at least is about 3 that this patient reports that pain across the low back and the bilateral lower extremities, radiating, sharp in quality and occasionally dull, but much better. He has been sleeping better at night, standing up straighter and again not using his wheelchair. The patient reports no new motor or sensory deficits, no new bowel or bladder incontinence. Very pleased with the progress thus far. PHYSICAL EXAMINATION: VITAL SIGNS: The patient's blood pressure is 119/75, pulse is 99, respirations 16, temperature is 97.9 degrees Fahrenheit and weight is 277 pounds. GENERAL: The patient is awake, alert, oriented, appropriate and very pleasant demeanor. HEENT: Shows normocephalic and atraumatic. Extraocular movements are intact, symmetrical. Oral cavity, mucous membranes are moist and pink. Dentition is intact. NECK: Shows anterior throat supple without palpable lymphadenopathy noted. Swallow reflex is symmetrical. CHEST: Shows normal on inspection. Breath sounds are clear to auscultation bilaterally. HEART: Shows S1 and S2 clear. ABDOMEN: Obese, soft, nontender and nondistended. BACK: Shows spine grossly midline. Well healed surgical scars noted in the lumbar distribution. Once again, lumbar paraspinous muscle shows symmetrical on inspection with palpation shows moderate tenderness bilaterally but only diffusely without radiation. LOWER EXTREMITIES: Showed deep tendon reflexes at 1+ in the patellar and tendo-calcaneus tendons, are equal. Motor exam is 5/5 with dorsiflexion, extension at approximately 4/5 with quads and hamstring flexion but is symmetrical right and left. Options were discussed with the patient and the patient's old chart was reviewed. His current medication regimen updated. Current review of systems updated today as well and we will hold on injections at this time as the patient would like to wait as he is feeling much better. We encouraged him to increase his activity with increased walking also discussed stationary bicycle riding and water therapy. He will try increasing activity with walking, primarily first and we will have him follow up at this time on as needed basis. DAVID CABEZAS MD DR: ANASTASIYA/nts JOB#: [id number] / [id number]
== END | disposition home or self-care (01) ==
LOC: PNCL 08:30
PROVIDERS: ATTEND Anesthesiology
DX: M51.16 Intervertebral disc disorders with radiculopathy, lumbar region (principal); M16.0 Bilateral primary osteoarthritis of hip
CPT/HCPCS: G0463

== ENCOUNTER → 2017-08-24 | Outpatient (CLI) | payer OTHER ==
[2017-08-24] MEDS: GADOBUTROL 7.5 MMOL/7.5 ML VIAL IV ×2 (15:23)
== END | disposition home or self-care (01) ==
LOC: KCIC MRI 14:20
DX: M48.061 Spinal stenosis, lumbar region without neurogenic claudication (principal); E88.2 Lipomatosis, not elsewhere classified
CPT/HCPCS: 72158; A9585